=== PATIENT | female | born 1970 | race Caucasian/White ===

== ENCOUNTER 2017-08-05 10:31 | Emergency (ER) | payer OTHER ==
[~2017-08-05] VITALS: Ht 162.6 cm; Wt 64.6 kg
[2017-08-05] MEDS ORDERED: FLEXERIL10 MG PO (10:56)
[2017-08-05] MEDS ORDERED: NAPROSYN500 MG PO (10:56)
[2017-08-05 11:12] VITALS: BP 157/98
== END 2017-08-05 11:12 | disposition home or self-care (01) ==
LOC: EME 10:31
DX: M62.830 Muscle spasm of back (principal); M54.2 Cervicalgia; V49.60XA Unspecified car occupant injured in collision with unspecified motor vehicles in traffic accident, initial encounter; F17.200 Nicotine dependence, unspecified, uncomplicated
CPT/HCPCS: 99281; 99282